=== PATIENT | female | born 1960 | race African-American/Black ===

== ENCOUNTER 2017-02-24 10:38 | Emergency (ER) | payer OTHER ==
[2017-02-24 10:44] VITALS: BP 152/73; BMI 29.9
[2017-02-24] MEDS ORDERED: MOTRIN TAB 600 MG PO STA (11:06)
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
[2017-02-24] MEDS ORDERED: MOTRIN TAB 600 MG PO ONE (11:21)
== END 2017-02-24 11:36 | disposition home or self-care (01) ==
LOC: ER 10:47
DX: S00.83XA Contusion of other part of head, initial encounter (principal); V49.3XXA Car occupant (driver) (passenger) injured in unspecified nontraffic accident, initial encounter
CPT/HCPCS: 99282; 99283